=== PATIENT | male | born 1940 | race Caucasian/White ===

== ENCOUNTER 2020-02-15 13:19 | Outpatient (CLI) | payer OTHER, SELFPAY ==
[2020-02-15 14:58] LABS: HIV 1/2 Ab P24 Ag Result Negative (Negative)
[2020-02-15 15:09] LABS: Hepatitis B Surface Antigen Negative (Negative)
[2020-02-15 15:14] LABS: HAV RESULT Negative (Negative); Hepatitis B Core IgM Result Negative (Negative)
[2020-02-15 15:26] LABS: Hepatitis C Virus Antibody Negative (Negative)
== END 2020-02-15 13:20 | disposition home or self-care (01) ==
PROVIDERS: PCP Internal Medicine; Visit Provider Nurse Practitioner
DX: R53.83 Other fatigue (principal); Z11.4 Encounter for screening for human immunodeficiency virus [HIV]
CPT/HCPCS: 36415; 80074; 86703; G0432